=== PATIENT | female | born 1945 | race Caucasian/White ===

== ENCOUNTER 2019-09-13 22:33 | Emergency (ER) | payer MEDICARE, OTHER ==
[~2019-09-13] VITALS: Ht 144.8 cm; Wt 81.6 kg
--- NOTE | 2019-09-13 23:40 | PHYS DOC ---
Past Medical History Past Medical History: Arthritis, Diabetes-Type II, High Cholesterol Past Surgical History: Knee Replacement, Tonsillectomy, Other Additional Past Surgical Histo: LEFT KNEE REPLACE, COLOSTOMY REVERSAL, HERNIA REAPAIR, WISDOM TEETH Alcohol Use: None Drug Use: None Adult General Chief Complaint Chief Complaint: EYE PROBLEMS HPI HPI Patient is a 74 year old female who presents with complaints of blurred vision in left eye starting 1 hour prior to ED arrival. Patient reports wavy vision with blurring on round the edges of the left visual field. Mean changes have since resolved. Patient denies headache, dizziness, neck pain, palpitations, extremity weakness or loss of sensation. No other acute symptoms or complaints. Patient wears corrective eyeglasses. [] Review of Systems Review of Systems Her symptoms as per history of present illness. All other review symptoms are negative. All other systems were reviewed and found to be within normal limits, except as documented in this note. Allergies Allergies Allergies Coded Allergies Type Severity Reaction Last Updated Verified latex Allergy Intermediate 09/13/19 Yes Physical Exam Physical Exam Constitutional: Well developed, well nourished, no acute distress, non-toxic appearance. [] HENT: Normocephalic, atraumatic, bilateral external ears normal, oropharynx moist, no oral exudates, nose normal. [] Eyes: PERRLA, EOMI, no abnormalities appreciated and limited posterior funduscopic exam of left eye. Visual acuities per nursing notes. [] Neck: Normal range of motion, no tenderness, supple, no stridor. [] Cardiovascular:Heart rate regular rhythm, no murmur [] Lungs & Thorax: Bilateral breath sounds clear to auscultation [] Neurologic: Alert and oriented X 3, normal motor function, normal sensory function, no focal deficits noted. [] Current Patient Data Vital Signs Vital Signs Date Time Temp Pulse Resp B/P (MAP) Pulse Ox O2 Delivery O2 Flow Rate FiO2 09/13/19 22:35 97.7 71 16 164/81 (108) 94 Room Air 97.7 Lab Values Laboratory Tests Test 09/13/19 23:12 Glucose (Fingerstick) 77 mg/dL (70-99) EKG EKG [EkG: Normal sinus rhythm, no acute ST-T wave changes.] Radiology/Procedures Radiology/Procedures [] Course & Med Decision Making Course & Med Decision Making Pertinent Labs and Imaging studies reviewed. (See chart for details) [Symptoms resolved prior to ED arrival. 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 Departure Departure Impression: Primary Impression: Blurred vision, left eye Disposition: HOME, SELF-CARE Condition: GOOD Additional Instructions: You were evaluated in the emergency department for blurred vision left eye. The cause has not been determined. Please follow-up with your eye doctor morning for further evaluation.. ADAMA BURCIAGA DO Sep 13, 2019 23:40
[2019-09-13 23:43] VITALS: BP 143/67
--- NOTE | 2019-09-14 06:46 | EKG ---
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
== END 2019-09-13 23:50 | disposition home or self-care (01) ==
LOC: ER 22:33
DX: H53.8 Other visual disturbances (principal); E78.00 Pure hypercholesterolemia, unspecified; E11.9 Type 2 diabetes mellitus without complications; Z91.040 Latex allergy status
CPT/HCPCS: 82962; 93005; 99285-25

== ENCOUNTER 2021-06-21 12:22 | Emergency (ER) | payer MEDICARE, OTHER ==
[~2021-06-21] VITALS: Ht 147.3 cm; Wt 82.0 kg
[2021-06-21] MEDS ORDERED: DIPH,PERTUSS(ACELL),TET VAC/PF 0.5 ML SYRINGE. VAX IM ONE (12:45)
--- NOTE | 2021-06-21 13:39 | RAD ---
XR RT TIBIA+FIBULA , XR SHOULDER_LEFT 2+ VIEWS, XR HAND_RIGHT 3 VIEWS Clinical indications: Reason: fall pain / Spl. Instructions: / History: Right hand: There is a nondisplaced fracture of the dorsal proximal corner of the first distal phalan x. No dislocation or lytic process is seen. There is degenerative osteophytosis first carpal metacarp al joint. Scaphoid lunate appears intact. Right tibia/fibula: No acute fracture or dislocation or osteolytic process is evident. Degenerative o steoarthritis of the right knee joint is seen. Left shoulder: No acute fracture or dislocation or lytic process is seen. No AC joint separation is s een. Mild primary degenerative osteoarthritis of the AC joint is seen. IMPRESSION: Nondisplaced fracture of the proximal aspect of the first distal phalanx of the right josé d. Electronically signed by: Isiah Golden MD (06/21/2021 1:36 PM) [id number]
[2021-06-21 13:50] LABS: BILIRUBIN,URINE NEGATIVE (NEG); CLARITY,URINE CLEAR; COLOR,URINE YELLOW; NITRITE,URINE POSITIVE (NEG); PROTEIN,URINE NEGATIVE (NEG-TRACE); UROBILINOGEN,URINE 0.2 mg/dL (0.2 mg/dL)
[2021-06-21 13:52] LABS: BACTERIA,URINE MANY /HPF (0-FEW)
[2021-06-21 13:53] LABS: RBC,URINE RARE /HPF (0-2)
--- NOTE | 2021-06-21 13:59 | RAD ---
CT LUMBAR SPINE WO, CT THORACIC SPINE WO, CT HEAD AND C-SPINE WO Clinical indications: Reason: fall and pain NONCONTRAST HEAD CT Technique: Noncontrast axial cross sectional scanning of the head was performed. PQRS compliance Statement One or more of the following individualized dose reduction techniques were utilized for this study: 1. Automated exposure control 2. Adjustment of the mA and/or kV according to patient size 3. Use of iterative reconstruction technique Findings: No acute intracranial hemorrhage or midline shift or mass-effect or hydrocephalus or extra- axial fluid collection is seen. Mild bilateral periventricular white matter hypodensity is seen consi stent with chronic small vessel ischemic disease. No skull fracture or pneumocephalus is seen. No opa cification of the mastoid sinuses or the middle ear cavities or the paranasal sinuses is seen. The ma xillary sinuses are not completely seen in this study. IMPRESSION: No acute intracranial hemorrhage is seen. Mild chronic small vessel ischemic disease. CT STUDY OF THE CERVICAL SPINE WITHOUT CONTRAST TECHNIQUE: Noncontrast helical CT scanning of the cervical spine was performed. Multiplanar 2-D recon structions were generated. FINDINGS: Scoliotic curvature of the cervical spine is seen. No acute fracture is evident. No disciti s or lytic process is evident. No perching of facet joints is seen. Degenerative facet arthropathy is apparent. Spinous processes are intact. There is moderate to severe degenerative disc space narrowin g and moderate degenerative endplate spurring at C5-6 and C6-7. Due to the degenerative endplate spur ring, there is a mild to moderate spinal canal stenosis at C5-6 and a mild spinal canal stenosis at C 6-7. Grade 1 anterolisthesis of C4-5 and C7-T1 is seen. IMPRESSION: No acute fracture. Degenerative cervical spondylosis. Enlarged left lobe of the thyroid gland with a hypodense nodule. There is a hypodense nodule within t he right lobe of the thyroid gland. This may be further evaluated with outpatient thyroid sonography. Electronically signed by: Isiah Golden MD (06/21/2021 1:57 PM) [id number]
--- NOTE | 2021-06-21 14:55 | PHYS DOC ---
Past Medical History Past Medical History: Arthritis, Diabetes-Type II, High Cholesterol Past Surgical History: Knee Replacement Additional Past Surgical Histo: LEFT KNEE REPLACE, COLOSTOMY REVERSAL, HERNIA REAPAIR, WISDOM TEETH Smoking Status: Never Smoker Alcohol Use: None Drug Use: None General Adult EDM: Chief Complaint: HEAD INJURY/TRAUMA HPI: HPI: Patient is a 76 year old female with history of diabetes type 2, high cholesterol, who presents the ED today complaining of falling 2 days ago. Patient states on Saturday she was sweeping leaves off her bed, she states she fell down 2 steps. Denies any loss of consciousness. Reports hitting her head on the deck. Patient is complaining mild intermittent pain to the head, right hand, left shoulder, mid and low back pain, and right davis. Patient states pain is on touching those regions. Denies any nausea, vomiting. Denies any chest pain or shortness of breath. She states she is on a blood thinner aspirin 81 mg every day. Review of Systems: Review of Systems: Constitutional: Denies fever or chills. [] Eyes: Denies change in visual acuity. [] HENT: Denies nasal congestion or sore throat. [] Respiratory: Denies cough or shortness of breath. [] Cardiovascular: Denies chest pain or edema. [] GI: Denies abdominal pain, nausea, vomiting, bloody stools or diarrhea. [] : Denies dysuria. [] Musculoskeletal: Reports low back pain, mid back pain, right davis pain, right hand pain, left shoulder pain Integument: Denies rash. [] Neurologic: Reports hitting her head denies focal weakness or sensory changes. [] Psychiatric: Denies depression or anxiety. [] Heart Score: C/O Chest Pain: N/A Risk Factors: Risk Factors: DM, Current or recent (<one month) smoker, HTN, HLP, family history of CAD, obesity. Risk Scores: Score 0 - 3: 2.5% MACE over next 6 weeks - Discharge Home Score 4 - 6: 20.3% MACE over next 6 weeks - Admit for Clinical Observation Score 7 - 10: 72.7% MACE over next 6 weeks - Early Invasive Strategies Current Medications: Current Medications Medications (Trade) Dose Ordered Sig/Ari Start Time Stop Time Status Last Admin Dose Admin Diphtheria/ Tetanus/Acell Pertussis (ADACEL TDap SYRINGE) 0.5 ml ONCE ONCE 06/21/21 12:45 06/21/21 12:48 DC 06/21/21 14:15 0.5 ML Allergies: Allergies: Allergies Coded Allergies Type Severity Reaction Last Updated Verified latex Allergy Intermediate 06/21/21 Yes Physical Exam: PE: Constitutional: Well developed, well nourished, no acute distress, non-toxic appearance. [] HENT: Normocephalic, atraumatic, bilateral external ears normal, oropharynx moist, no oral exudates, nose normal. [] Eyes: PERRLA, EOMI, conjunctiva normal, no discharge. [] Neck: Normal range of motion, no tenderness, supple, no stridor. [] Cardiovascular:Heart rate regular rhythm, no murmur [] Lungs & Thorax: Bilateral breath sounds clear to auscultation [] Abdomen: Bowel sounds normal, soft, no tenderness, no masses, no pulsatile masses. [] Skin: Warm, dry, no erythema, no rash. [] Back: Bruising noted on the left lower back, paraspinal muscle tenderness to the left lumbar spine and left thoracic spine, no midline thoracic or lumbar spine tenderness, no CVA tenderness. [] Extremities: Right anterior thumb with a superficial laceration approximately 0. 5 cm. There is no obvious tendon involvement. Adequate flexion and extension of the right thumb. Adequate radial sensation to the right thumb. Bruising also noted along the right thumb. Full range of motion to the right fingers. Adequate medial, ulnar sensation to the right hand. Cap refill less than 2 seconds to right fingers. Left shoulder with bruising. Full range of motion to the left upper extremity. +2 left radial pulse. Adequate radial, medial, ulnar sensation to the left hand. Cap refill less than 2 seconds to left fingers. Right davis with bruising, tenderness on the mid davis. Full range of motion to the right lower extremity. +2 right pedal pulse. Cap refill less than 2 seconds the right lower extremity. +2 right pedal pulse. Neurologic: Bruising noted to the left occipital. Alert and oriented X 3, normal motor function, normal sensory function, no focal deficits noted. Clear nose 2 through 12 intact Psychologic: Affect normal, judgement normal, mood normal. [] Current Patient Data: Labs: Laboratory Tests Test 06/21/21 13:35 Urine Collection Type Unknown Urine Color Yellow Urine Clarity Clear Urine pH 6.0 (<5.0-8.0) Urine Specific [place] 1.010 (1.000-1.030) Urine Protein Negative mg/dL (NEG-TRACE) Urine Glucose (UA) Negative mg/dL (NEG) Urine Ketones (Stick) Negative mg/dL (NEG) Urine Blood Negative (NEG) Urine Nitrite Positive (NEG) Urine Bilirubin Negative (NEG) Urine Urobilinogen Dipstick 0.2 mg/dL (0.2 mg/dL) Urine Leukocyte Esterase Moderate (NEG) Urine RBC Rare /HPF (0-2) Urine WBC 5-10 /HPF (0-4) Urine Squamous Epithelial Cells Few /LPF Urine Bacteria Many /HPF (0-FEW) Vital Signs: Vital Signs Date Time Temp Pulse Resp B/P (MAP) Pulse Ox O2 Delivery O2 Flow Rate FiO2 06/21/21 12:35 98.8 67 16 176/89 (118) 99 Room Air 98.8 EKG: EKG: [] Radiology/Procedures: Radiology/Procedures: []PROCEDURE: TIBIA FIBULA RIGHT XR RT TIBIA+FIBULA , XR SHOULDER_LEFT 2+ VIEWS, XR HAND_RIGHT 3 VIEWS Clinical indications: Reason: fall pain / Spl. Instructions: / History: Right hand: There is a nondisplaced fracture of the dorsal proximal corner of the first distal phalanx. No dislocation or lytic process is seen. There is degenerative osteophytosis first carpal metacarpal joint. Scaphoid lunate appears intact. Right tibia/fibula: No acute fracture or dislocation or osteolytic process is evident. Degenerative osteoarthritis of the right knee joint is seen. Left shoulder: No acute fracture or dislocation or lytic process is seen. No AC joint separation is seen. Mild primary degenerative osteoarthritis of the AC joint is seen. IMPRESSION: Nondisplaced fracture of the proximal aspect of the first distal phalanx of the right hand. Electronically signed by: Isiah Golden MD (06/21/2021 1:36 PM) [id number] DICTATED and SIGNED BY: ISIAH GOLDEN MD DATE: 06/21/21 [id number] PROCEDURE: CT HEAD AND CERVICAL SPINE WO CT LUMBAR SPINE WO, CT THORACIC SPINE WO, CT HEAD AND C-SPINE WO Clinical indications: Reason: fall and pain NONCONTRAST HEAD CT Technique: Noncontrast axial cross sectional scanning of the head was performed. PQRS compliance Statement One or more of the following individualized dose reduction techniques were utilized for this study: 1. Automated exposure control 2. Adjustment of the mA and/or kV according to patient size 3. Use of iterative reconstruction technique Findings: No acute intracranial hemorrhage or midline shift or mass-effect or hydrocephalus or extra-axial fluid collection is seen. Mild bilateral periventricular white matter hypodensity is seen consistent with chronic small vessel ischemic disease. No skull fracture or pneumocephalus is seen. No opacification of the mastoid sinuses or the middle ear cavities or the paranasal sinuses is seen. The maxillary sinuses are not completely seen in this study. IMPRESSION: No acute intracranial hemorrhage is seen. Mild chronic small vessel ischemic disease. CT STUDY OF THE CERVICAL SPINE WITHOUT CONTRAST TECHNIQUE: Noncontrast helical CT scanning of the cervical spine was performed. Multiplanar 2-D reconstructions were generated. FINDINGS: Scoliotic curvature of the cervical spine is seen. No acute fracture is evident. No discitis or lytic process is evident. No perching of facet joints is seen. Degenerative facet arthropathy is apparent. Spinous processes are intact. There is moderate to severe degenerative disc space narrowing and moderate degenerative endplate spurring at C5-6 and C6-7. Due to the degenerative endplate spurring, there is a mild to moderate spinal canal stenosis at C5-6 and a mild spinal canal stenosis at C6-7. Grade 1 anterolisthesis of C4-5 and C7-T1 is seen. IMPRESSION: No acute fracture. Degenerative cervical spondylosis. Enlarged left lobe of the thyroid gland with a hypodense nodule. There is a hypodense nodule within the right lobe of the thyroid gland. This may be further evaluated with outpatient thyroid sonography. Electronically signed by: Isiah Golden MD (06/21/2021 1:57 PM) [id number] DICTATED and SIGNED BY: ISIAH GOLDEN MD DATE: 06/21/21 [id number] Course & Med Decision Making: Course & Med Decision Making Pertinent Labs and Imaging studies reviewed. (See chart for details) This is a 76-year-old female patient presented to the ED today complaining of falling 3 days ago. Patient is complaining of head pain, right hand pain, shoulder pain, mid and low back pain, right davis pain. CT of the head, cervical spine, thoracic and lumbar spine were negative for any acute findings, noted for thyroid nodule. Instructed to follow-up with PCP for the lung nodule. UA noted for UTI Left shoulder x-ray, right tib-fib x-rays are negative for any acute findings. Right hand x-ray noted for nondisplaced fracture of the proximal aspect of the first distal phalanx of the right hand. This is an open fracture considering there is a laceration over the right thumb. Patient was placed in a foam finger splint by me. Neurovascular exam done by me is intact. Ice elevation encouraged. She was given Rocephin in the ED and discharged on cephalexin. Follow-up with Ortho tomorrow. Benita Disclaimer: Benita Disclaimer: This electronic medical record was generated, in whole or in part, using a voice recognition dictation system. Departure Departure Impression: Primary Impression: Fall Qualified Codes: W19.XXXA - Unspecified fall, initial encounter Additional Impressions: Finger fracture, right Qualified Codes: S62.514B - Nondisplaced fracture of proximal phalanx of right thumb, initial encounter for open fracture Contusion of shoulder, left Qualified Codes: S40.012A - Contusion of left shoulder, initial encounter Lumbar contusion Qualified Codes: S30.0XXA - Contusion of lower back and pelvis, initial encounter Thyroid nodule Disposition: 01 HOME / SELF CARE / HOMELESS Condition: STABLE Referrals: BRANDEE BUNCH (PCP) GRACIELA LINN DO call his office tomorrow and follow up for finger fracture Patient Instructions: Contusion, [id number], Finger Fracture (Phalangeal)- [facility] Additional Instructions: You were evaluated in the emergency room, your CT of the head, neck, mid and low back were negative for any acute findings, left shoulder x-ray was negative your right lower extremity x-ray was negative for any acute findings, your right thumb x-ray was noted for thumb fracture. Please call the orthopedic doctor provided and set up a follow-up appointment. You also have a thyroid nodule, it needs to be followed up with your primary care doctor as an outpatient Scripts Cephalexin (CEPHALEXIN) 500 Mg Tablet 1 TAB PO TID, #30 TAB Prov: RICK MERCEDES APRN 06/21/21 RICK MERCEDES APRN Jun 21, 2021 14:55
[2021-06-21] MEDS ORDERED: LIDOCAINE 1% PF 2 ML VIAL. INJ ONE (15:30)
[2021-06-21] MEDS ORDERED: cefTRIAXone IM 1 GM VIAL IM ONE (15:30)
[2021-06-21 16:00] VITALS: BP 140/85
[2021-06-21] MEDS ORDERED: CEPH500T PO (16:05)
== END 2021-06-21 16:35 | disposition home or self-care (01) ==
LOC: ER 12:22
DX: S62.514B Nondisplaced fracture of proximal phalanx of right thumb, initial encounter for open fracture (principal); S40.012A Contusion of left shoulder, initial encounter; S30.0XXA Contusion of lower back and pelvis, initial encounter; E04.1 Nontoxic single thyroid nodule; M54.2 Cervicalgia; R51.9 Headache, unspecified; E11.9 Type 2 diabetes mellitus without complications; Z91.040 Latex allergy status; E78.00 Pure hypercholesterolemia, unspecified; W10.8XXA Fall (on) (from) other stairs and steps, initial encounter; Z91.81 History of falling; Y93.89 Activity, other specified; Y92.89 Other specified places as the place of occurrence of the external cause; Y99.8 Other external cause status
CPT/HCPCS: 70450; 72125; 72128; 72131; 73030; 73130; 73590; 81001; 87086; 90471; 90715; 96372; 99285; J0696; J3490

== ENCOUNTER → 2021-09-12 | Outpatient (CLI) | payer MEDICARE, OTHER ==
[~2021-09-12] MED LIST: CEPH500T PO; LIDOCAINE 1% Multi-Dose 20 ML VIAL. INJ ONE
--- NOTE | 2021-09-12 15:10 | RAD ---
EXAMINATION: Ultrasound-guided fine-needle aspiration of bilateral thyroid nodules, 09/12/2021 10:01 A M CLINICAL INDICATION: This is bilateral thyroid nodules COMPARISON: Thyroid ultrasound 08/21/2021 FINDINGS/TECHNIQUE: The purpose of the procedure, and risks and benefits were explained to the patient. Informed consent was obtained. A timeout was performed. Initial ultrasound images identified the suspicious right thyroid nodule and the largest suspicious l eft thyroid nodule. The skin overlying the patient's neck was marked, prepped, and draped in standard sterile fashion. Skin and subcutaneous soft tissue overlying the right thyroid nodule were anestheti zed with 1% lidocaine. Using continuous ultrasound guidance, 3 25-gauge fine-needle aspiration sample s were obtained of the right thyroid nodule and given to the clinical laboratory science professor for analysis. Next, skin and subcutaneous soft tissue overlying the left thyroid nodule were anesthetized with 1 percent lidoc felix. Using continuous ultrasound guidance, 3 25-gauge fine-needle aspiration samples were obtained o f the left thyroid nodule in the exact same manner and given to the clinical laboratory science professor for analysis. The skin was cleansed and covered with a dressing. The patient tolerated the procedure well and left in s table condition. IMPRESSION: Technically successful, ultrasound-guided fine needle aspiration of the right thyroid nodule and the largest left thyroid nodule. Electronically signed by: Makayla Gan MD (09/12/2021 3:08 PM) [id number]
--- NOTE | 2021-09-12 15:10 | RAD ---
EXAMINATION: Ultrasound-guided fine-needle aspiration of bilateral thyroid nodules, 09/12/2021 10:01 A M CLINICAL INDICATION: This is bilateral thyroid nodules COMPARISON: Thyroid ultrasound 08/21/2021 FINDINGS/TECHNIQUE: The purpose of the procedure, and risks and benefits were explained to the patient. Informed consent was obtained. A timeout was performed. Initial ultrasound images identified the suspicious right thyroid nodule and the largest suspicious l eft thyroid nodule. The skin overlying the patient's neck was marked, prepped, and draped in standard sterile fashion. Skin and subcutaneous soft tissue overlying the right thyroid nodule were anestheti zed with 1% lidocaine. Using continuous ultrasound guidance, 3 25-gauge fine-needle aspiration sample s were obtained of the right thyroid nodule and given to the operations label clerk for analysis. Next, skin and subcutaneous soft tissue overlying the left thyroid nodule were anesthetized with 1 percent lidoc felix. Using continuous ultrasound guidance, 3 25-gauge fine-needle aspiration samples were obtained o f the left thyroid nodule in the exact same manner and given to the operations label clerk for analysis. The skin was cleansed and covered with a dressing. The patient tolerated the procedure well and left in s table condition. IMPRESSION: Technically successful, ultrasound-guided fine needle aspiration of the right thyroid nodule and the largest left thyroid nodule. Electronically signed by: Makayla Gan MD (09/12/2021 3:08 PM) [id number]
== END | disposition home or self-care (01) ==
LOC: US 09:58
PROVIDERS: ATTEND Physician Assistant
DX: E04.2 Nontoxic multinodular goiter (principal); Z79.899 Other long term (current) drug therapy; Z91.040 Latex allergy status
CPT/HCPCS: 10005; 10006; 88173; 88305